=== PATIENT | male | born 1950 | race Caucasian/White ===

== ENCOUNTER → 2020-08-06 | Outpatient (CLI) | payer OTHER ==
[~2020-08-06] MED LIST: ALDACTONE50 MG PO; ASPIRIN CHEWABL81 MG PO; BUSPIRONE HCL15 MG PO; CARVEDILOL12.5 MG PO; CLOPIDOGREL75 MG PO; COREG 12.5MG12.5 MG PO; COREG12.5 MG PO; GLUCOPHAGE1000 MG PO; LASIX40 MG PO; LEXAPRO20 MG PO; MAG-G27 MG PO; MAGNESIUM GLUCO27 MG PO; MULTIVITAMINS1 EAC1 PO; NEURONTIN300 MG PO; NEURONTIN600 MG PO; NORCO 7.5-3251 EACH PO; NORVASC5 MG PO; OMEPRAZOLE40 MG PO; TENORMIN50 MG PO; TIZANIDINE HCL4 M1 PO; VENTOLIN HFA 66.7 GM INH; VITAMIN B-12500 MCG PO; VITAMIN D325 MC6 PO; ZESTRIL 40 MG T40 MG PO; ZESTRIL40 MG PO; ZOCOR20 MG PO; ZOFRAN 4 MG TAB4 MG PO; ZYLOPRIM 100 M100 MG PO; ZYVOX600 MG PO
[2020-08-06 11:12] LABS: RBC (AUTOMATED) 200 (0-100000); WBC (AUTOMATED) 76 (0-500)
[2020-08-06 11:13] LABS: MONONUCLEAR CELLS 93.4 (75-100)
[2020-08-06 11:14] LABS: BODY FLUID SOURCE ASCITES; POLYMORPHONUCLEAR % 6.6 (0-25)
[2020-08-06 11:23] LABS: TOTAL PROTEIN, BODY FLUID 1.9 gm/dL
== END ==
LOC: OPSV 09:32
PROVIDERS: Internal Medicine Gastroenterology
PROC: 0W9G3ZZ Drainage of Peritoneal Cavity, Percutaneous Approach (ICD-10-PCS; principal; 2020-08-06)
DX: K70.31 Alcoholic cirrhosis of liver with ascites (principal)
CPT/HCPCS: 36415; 80048; 84157; 89051; 96365; P9047

== ENCOUNTER 2020-08-25 09:02 | Inpatient (IN) | payer MEDICARE ==
[~2020-08-25] VITALS: Ht 162.6 cm; Wt 81.6 kg
[~2020-08-25 09:02] MED LIST changes: -BUSPIRONE HCL15 MG PO; -CLOPIDOGREL75 MG PO; -COREG12.5 MG PO; -MAGNESIUM GLUCO27 MG PO; -TENORMIN50 MG PO; -ZYVOX600 MG PO
[2020-08-25 10:08] LABS: HEMOGLOBIN 11.8 gm/dl (14.0-17.5); RED BLOOD COUNT 3.6 M/UL (4.20-5.50); WHITE BLOOD COUNT 13.4 K/UL (4.5-11.0)
[2020-08-25 11:31] LABS: BODY FLUID SOURCE ASCITES; MONONUCLEAR CELLS 91 (75-100); POLYMORPHONUCLEAR % 9 (0-25); RBC (AUTOMATED) 100 (0-100000); WBC (AUTOMATED) 97 (0-500)
[2020-08-25 11:37] LABS: TOTAL PROTEIN, BODY FLUID 2.4 gm/dL
--- NOTE | 2020-08-25 14:59 | NUR ---
Attempted US guided PIV without success. to place central line.
[2020-08-25] MEDS ORDERED: MAGNESIUM GLUCO27 MG PO (17:12)
[2020-08-25] MEDS ORDERED: COREG12.5 MG PO (17:13)
[2020-08-25] MEDS ORDERED: LASIX40 MG PO (17:13)
[2020-08-25] MEDS ORDERED: BUSPIRONE HCL15 MG PO (23:20)
[2020-08-25] MEDS ORDERED: TENORMIN50 MG PO (23:24)
[2020-08-25] MEDS ORDERED: CLOPIDOGREL75 MG PO (23:26)
[2020-08-26 04:55] LABS: HEMOGLOBIN 11.3 gm/dl (14.0-17.5); RED BLOOD COUNT 3.43 M/UL (4.20-5.50); WHITE BLOOD COUNT 12.3 K/UL (4.5-11.0)
[2020-08-27 04:59] LABS: HEMOGLOBIN 10.5 gm/dl (14.0-17.5); RED BLOOD COUNT 3.18 M/UL (4.20-5.50)
[2020-08-28 05:27] LABS: HEMOGLOBIN 9.4 gm/dl (14.0-17.5)
[2020-08-28 05:36] LABS: RED BLOOD COUNT 2.83 M/UL (4.20-5.50); WHITE BLOOD COUNT 5.7 K/UL (4.5-11.0)
[2020-08-29 02:29] LABS: HEMOGLOBIN 9.2 gm/dl (14.0-17.5); RED BLOOD COUNT 2.8 M/UL (4.20-5.50); WHITE BLOOD COUNT 4.7 K/UL (4.5-11.0)
[2020-08-30 02:53] LABS: HEMOGLOBIN 9.4 gm/dl (14.0-17.5); RED BLOOD COUNT 2.86 M/UL (4.20-5.50); WHITE BLOOD COUNT 4.7 K/UL (4.5-11.0)
[2020-08-31 04:03] LABS: HEMOGLOBIN 9.6 gm/dl (14.0-17.5); RED BLOOD COUNT 2.93 M/UL (4.20-5.50); WHITE BLOOD COUNT 4.6 K/UL (4.5-11.0)
[2020-08-31 16:10] LABS: HEPARIN INDUCED PLATELET AB 0.199 OD (0.000-0.400)
[2020-09-01 04:08] LABS: HEMOGLOBIN 10.7 gm/dl (14.0-17.5); WHITE BLOOD COUNT 5.2 K/UL (4.5-11.0)
[2020-09-01 04:14] LABS: RED BLOOD COUNT 3.28 M/UL (4.20-5.50)
[2020-09-01 04:27] LABS: BUN/CREATININE RATIO 32 (0-10)
[2020-09-02 03:01] LABS: HEMOGLOBIN 11.1 gm/dl (14.0-17.5); RED BLOOD COUNT 3.44 M/UL (4.20-5.50); WHITE BLOOD COUNT 6.1 K/UL (4.5-11.0)
[2020-09-02 03:25] LABS: BUN/CREATININE RATIO 28 (0-10)
[2020-09-02] MEDS ORDERED: ZYVOX600 MG PO (21:22)
[2020-09-03 02:36] LABS: HEMOGLOBIN 10.9 gm/dl (14.0-17.5); RED BLOOD COUNT 3.44 M/UL (4.20-5.50)
[2020-09-03 03:00] LABS: BUN/CREATININE RATIO 26 (0-10)
== END 2020-09-03 12:15 | disposition home or self-care (01) | DRG 871 ==
LOC: ER1 09:02 → CCU 16:37 → PROG CARE 16:37 → CDU 16:37 → CCU 18:56 → PROG CARE 08-28 10:25
PROVIDERS: Family Medicine; Internal Medicine; Physician Assistant; ADMIT Internal Medicine
PROC: 0W9G3ZZ Drainage of Peritoneal Cavity, Percutaneous Approach (ICD-10-PCS; principal; 2020-08-25)
PROC: 05HM33Z Insertion of Infusion Device into Right Internal Jugular Vein, Percutaneous Approach (ICD-10-PCS; 2020-08-25)
PROC: 02HV33Z Insertion of Infusion Device into Superior Vena Cava, Percutaneous Approach (ICD-10-PCS; 2020-08-25)
PROC: B24BZZZ Ultrasonography of Heart with Aorta (ICD-10-PCS; 2020-08-31)
DX: A41.81 Sepsis due to Enterococcus (principal); R57.1 Hypovolemic shock; N17.0 Acute kidney failure with tubular necrosis; J96.01 Acute respiratory failure with hypoxia; J18.9 Pneumonia, unspecified organism; R65.21 Severe sepsis with septic shock; E87.2 Acidosis; Z20.822 Contact with and (suspected) exposure to COVID-19; E11.9 Type 2 diabetes mellitus without complications; R74.8 Abnormal levels of other serum enzymes; D69.6 Thrombocytopenia, unspecified; E78.5 Hyperlipidemia, unspecified; N18.30 Chronic kidney disease, stage 3 unspecified; K70.31 Alcoholic cirrhosis of liver with ascites; E87.6 Hypokalemia; I95.9 Hypotension, unspecified; D64.9 Anemia, unspecified; F17.210 Nicotine dependence, cigarettes, uncomplicated; Z83.3 Family history of diabetes mellitus; Z79.82 Long term (current) use of aspirin; Z79.4 Long term (current) use of insulin; Z79.899 Other long term (current) drug therapy
CPT/HCPCS: ECHO; 36415; 36600; 71045; 71046; 80048; 80053; 81001; 82140; 82533; 82803; 82962; 83605; 83690; 83880; 83986; 84132; 84157; 84439; 84443; 85025; 85027; 85049; 85610; 87040; 87070; 87077; 87186; 87205; 89051; 93005; 93306; 94640; 94664; 94760; 96365; 96375; 97110; 97110-GP-CQ; 97116-GP-CQ; 97163; 97166; 97530-GP-CQ; 99285; G0480; J0696; J1644; J1650; J2185; J2354; J3370; J7030; J7040; J7042; J7070; P9045; P9047; U0002

== ENCOUNTER 2020-09-06 08:19 | Emergency (ER) | payer MEDICARE ==
[~2020-09-06 08:19] MED LIST changes: +BUSPIRONE HCL15 MG PO; +CLOPIDOGREL75 MG PO; +COREG12.5 MG PO; +MAGNESIUM GLUCO27 MG PO; +TENORMIN50 MG PO; +ZYVOX600 MG PO
== END 2020-09-06 10:30 | disposition left against medical advice (07) ==
LOC: ER1 08:19
DX: R41.0 Disorientation, unspecified (principal); F17.200 Nicotine dependence, unspecified, uncomplicated
CPT/HCPCS: 99284

== ENCOUNTER → 2020-09-10 | Outpatient (CLI) | payer MEDICARE ==
[~2020-09-10] VITALS: Ht 157.5 cm; Wt 65.8 kg
== END ==
LOC: OPSV 12:34
PROC: 0W9G3ZX Drainage of Peritoneal Cavity, Percutaneous Approach, Diagnostic (ICD-10-PCS; principal; 2020-09-10)
PROC: BW40ZZZ Ultrasonography of Abdomen (ICD-10-PCS; 2020-09-10)
DX: R18.8 Other ascites (principal); Z20.822 Contact with and (suspected) exposure to COVID-19; Z79.82 Long term (current) use of aspirin; Z79.02 Long term (current) use of antithrombotics/antiplatelets; Z79.899 Other long term (current) drug therapy
CPT/HCPCS: 36415; 85610; 87635; 96365; P9047

== ENCOUNTER 2020-10-06 09:12 | Emergency (ER) | payer MEDICARE ==
[2020-10-06 11:54] LABS: RED BLOOD COUNT 3.18 M/UL (4.20-5.50); WHITE BLOOD COUNT 5.9 K/UL (4.5-11.0)
== END 2020-10-06 13:26 | disposition left against medical advice (07) ==
LOC: ER1 09:12
PROVIDERS: Emergency Medicine
DX: K74.60 Unspecified cirrhosis of liver (principal); R18.8 Other ascites; N17.9 Acute kidney failure, unspecified; K76.7 Hepatorenal syndrome; E11.9 Type 2 diabetes mellitus without complications; J44.9 Chronic obstructive pulmonary disease, unspecified; I11.0 Hypertensive heart disease with heart failure; I50.9 Heart failure, unspecified; F17.200 Nicotine dependence, unspecified, uncomplicated; Z86.19 Personal history of other infectious and parasitic diseases
CPT/HCPCS: 36415; 80053; 83690; 83880; 85025; 85610; 85730; 93005; 99284

== ENCOUNTER 2020-10-10 08:34 | Emergency (ER) | payer MEDICARE ==
[2020-10-10 09:38] LABS: RED BLOOD COUNT 3.48 M/UL (4.20-5.50); WHITE BLOOD COUNT 7.4 K/UL (4.5-11.0)
[2020-10-10 10:23] LABS: BUN/CREATININE RATIO 14 (0-10)
[2020-10-10 12:05] LABS: BODY FLUID SOURCE ASCITES; MONONUCLEAR CELLS 91.1 (75-100); POLYMORPHONUCLEAR % 8.9 (0-25); RBC (AUTOMATED) 100 (0-100000); WBC (AUTOMATED) 45 (0-500)
[2020-10-10 13:16] LABS: LDH, BODY FLUID 51 U/L; TOTAL PROTEIN, BODY FLUID 2.2 gm/dL
== END 2020-10-10 13:29 | disposition home or self-care (01) ==
LOC: ER1 08:34
PROVIDERS: Emergency Medicine
PROC: 0W9G3ZX Drainage of Peritoneal Cavity, Percutaneous Approach, Diagnostic (ICD-10-PCS; principal; 2020-10-10)
DX: R06.00 Dyspnea, unspecified (principal); K74.60 Unspecified cirrhosis of liver; I12.9 Hypertensive chronic kidney disease with stage 1 through stage 4 chronic kidney disease, or unspecified chronic kidney disease; N18.9 Chronic kidney disease, unspecified; D63.1 Anemia in chronic kidney disease; E11.22 Type 2 diabetes mellitus with diabetic chronic kidney disease
CPT/HCPCS: 71045; 80053; 82550; 82553; 82945; 83615; 83690; 83874; 84157; 84484; 85025; 85610; 85730; 87070; 87205; 89051; 96365; 96366; 99285; P9047

== ENCOUNTER → 2020-10-29 | Outpatient (CLI) | payer MEDICARE ==
[~2020-10-29] VITALS: Ht 157.5 cm; Wt 65.8 kg
== END ==
LOC: OPSV 09:28
PROVIDERS: Internal Medicine Gastroenterology
PROC: 0W9G3ZZ Drainage of Peritoneal Cavity, Percutaneous Approach (ICD-10-PCS; principal; 2020-10-29)
DX: K70.31 Alcoholic cirrhosis of liver with ascites (principal)
CPT/HCPCS: 80048; 96365; C1729; P9047

== ENCOUNTER → 2020-11-05 | Outpatient (CLI) | payer MEDICARE ==
[~2020-11-05] VITALS: Ht 157.5 cm; Wt 67.1 kg
== END ==
LOC: OPSV 09:54
PROVIDERS: Internal Medicine Gastroenterology
PROC: 0W9G3ZZ Drainage of Peritoneal Cavity, Percutaneous Approach (ICD-10-PCS; principal; 2020-11-05)
DX: K70.31 Alcoholic cirrhosis of liver with ascites (principal); N18.9 Chronic kidney disease, unspecified; Z79.82 Long term (current) use of aspirin; Z79.02 Long term (current) use of antithrombotics/antiplatelets; Z79.899 Other long term (current) drug therapy
CPT/HCPCS: 80048; 96365; C1729; P9047

== ENCOUNTER → 2020-11-12 | Outpatient (CLI) | payer MEDICARE | LOC: OPSV 09:02 | PROVIDERS: Internal Medicine Gastroenterology | PROC: 0W9G3ZZ Drainage of Peritoneal Cavity, Percutaneous Approach (ICD-10-PCS; principal; 2020-11-12) | DX: K70.31 Alcoholic cirrhosis of liver with ascites (principal); N18.9 Chronic kidney disease, unspecified | CPT/HCPCS: 36415; 80048; 96365; C1729; P9047 ==

== ENCOUNTER → 2020-11-25 | Outpatient (CLI) | payer MEDICARE ==
[~2020-11-25] VITALS: Ht 157.5 cm; Wt 65.8 kg
== END ==
LOC: OPSV 09:32
PROVIDERS: Internal Medicine Gastroenterology
PROC: 0W9G3ZZ Drainage of Peritoneal Cavity, Percutaneous Approach (ICD-10-PCS; principal; 2020-11-25)
DX: K70.31 Alcoholic cirrhosis of liver with ascites (principal); Z79.82 Long term (current) use of aspirin; Z79.02 Long term (current) use of antithrombotics/antiplatelets; Z79.899 Other long term (current) drug therapy
CPT/HCPCS: 36415; 80048; 96365; C1729; P9047

== ENCOUNTER → 2020-12-09 | Outpatient (CLI) | payer MEDICARE ==
[~2020-12-09] VITALS: Ht 157.5 cm; Wt 67.1 kg
== END ==
LOC: OPSV 09:22
PROVIDERS: Internal Medicine Gastroenterology
PROC: 0W9G3ZZ Drainage of Peritoneal Cavity, Percutaneous Approach (ICD-10-PCS; principal; 2020-12-09)
DX: K70.31 Alcoholic cirrhosis of liver with ascites (principal)
CPT/HCPCS: 36415; 80048; 96365; C1729; P9047

== ENCOUNTER → 2020-12-23 | Outpatient (CLI) | payer MEDICARE ==
[~2020-12-23] VITALS: Ht 157.5 cm; Wt 67.1 kg
== END ==
LOC: OPSV 09:20
PROVIDERS: Internal Medicine Gastroenterology
PROC: 0W9G3ZZ Drainage of Peritoneal Cavity, Percutaneous Approach (ICD-10-PCS; principal; 2020-12-23)
DX: K70.31 Alcoholic cirrhosis of liver with ascites (principal); N18.9 Chronic kidney disease, unspecified; Z91.19 Patient's noncompliance with other medical treatment and regimen; Z79.82 Long term (current) use of aspirin; Z79.02 Long term (current) use of antithrombotics/antiplatelets; Z79.899 Other long term (current) drug therapy
CPT/HCPCS: 36415; 80048; 96365; C1729; P9047

== ENCOUNTER → 2020-12-30 | Outpatient (CLI) | payer MEDICARE ==
[~2020-12-30] VITALS: Ht 157.5 cm; Wt 67.6 kg
== END ==
LOC: OPSV 09:49
PROVIDERS: Internal Medicine Gastroenterology
PROC: 0W9G3ZZ Drainage of Peritoneal Cavity, Percutaneous Approach (ICD-10-PCS; principal; 2020-12-30)
DX: K70.31 Alcoholic cirrhosis of liver with ascites (principal); N18.9 Chronic kidney disease, unspecified; Z79.82 Long term (current) use of aspirin; Z79.02 Long term (current) use of antithrombotics/antiplatelets; Z79.899 Other long term (current) drug therapy
CPT/HCPCS: 36415; 80048; 96365; C1729; P9047

== ENCOUNTER → 2021-01-06 | Outpatient (CLI) | payer MEDICARE ==
[~2021-01-06] VITALS: Ht 157.5 cm; Wt 65.8 kg
== END ==
LOC: OPSV 08:38
PROVIDERS: Internal Medicine Gastroenterology
PROC: 0W9G3ZZ Drainage of Peritoneal Cavity, Percutaneous Approach (ICD-10-PCS; principal; 2021-01-06)
DX: K70.31 Alcoholic cirrhosis of liver with ascites (principal); Z79.82 Long term (current) use of aspirin; Z79.02 Long term (current) use of antithrombotics/antiplatelets; Z79.899 Other long term (current) drug therapy
CPT/HCPCS: 36415; 80048; 96365; C1729; P9047

== ENCOUNTER → 2021-01-13 | Outpatient (CLI) | payer MEDICARE ==
[~2021-01-13] VITALS: Ht 157.5 cm; Wt 65.8 kg
== END ==
LOC: OPSV 08:55
PROVIDERS: Internal Medicine Gastroenterology
PROC: 0W9G3ZZ Drainage of Peritoneal Cavity, Percutaneous Approach (ICD-10-PCS; principal; 2021-01-13)
DX: K70.31 Alcoholic cirrhosis of liver with ascites (principal); Z79.82 Long term (current) use of aspirin; Z79.02 Long term (current) use of antithrombotics/antiplatelets; Z79.899 Other long term (current) drug therapy
CPT/HCPCS: 36415; 80048; 96365; C1729; P9047

== ENCOUNTER → 2021-01-20 | Outpatient (CLI) | payer MEDICARE ==
[~2021-01-20] VITALS: Ht 157.5 cm; Wt 65.8 kg
== END | disposition home or self-care (01) ==
LOC: OPSV 09:11
PROVIDERS: Internal Medicine Gastroenterology
DX: K70.31 Alcoholic cirrhosis of liver with ascites (principal); Z79.82 Long term (current) use of aspirin; Z79.02 Long term (current) use of antithrombotics/antiplatelets; Z79.899 Other long term (current) drug therapy
CPT/HCPCS: 36415; 80048; 96365; C1729; P9047

== ENCOUNTER → 2021-01-27 | Outpatient (CLI) | payer MEDICARE ==
[~2021-01-27] VITALS: Ht 157.5 cm; Wt 64.9 kg
== END ==
LOC: OPSV 09:46
PROVIDERS: Internal Medicine Gastroenterology
PROC: 0W9G3ZZ Drainage of Peritoneal Cavity, Percutaneous Approach (ICD-10-PCS; principal; 2021-01-27)
DX: K70.31 Alcoholic cirrhosis of liver with ascites (principal); Z79.82 Long term (current) use of aspirin; Z79.02 Long term (current) use of antithrombotics/antiplatelets; Z79.899 Other long term (current) drug therapy
CPT/HCPCS: 36415; 80048; 96365; P9047

== ENCOUNTER → 2021-02-03 | Outpatient (CLI) | payer MEDICARE ==
[~2021-02-03] VITALS: Ht 157.5 cm; Wt 67.1 kg
== END ==
LOC: OPSV 09:03
PROVIDERS: Internal Medicine Gastroenterology
PROC: 0W9G3ZZ Drainage of Peritoneal Cavity, Percutaneous Approach (ICD-10-PCS; principal; 2021-02-03)
DX: K70.31 Alcoholic cirrhosis of liver with ascites (principal); Z79.82 Long term (current) use of aspirin; Z79.02 Long term (current) use of antithrombotics/antiplatelets; Z79.899 Other long term (current) drug therapy
CPT/HCPCS: 36415; 80048; 96365; C1729; P9047

== ENCOUNTER → 2021-02-17 | Outpatient (CLI) | payer MEDICARE ==
[~2021-02-17] VITALS: Ht 157.5 cm; Wt 67.1 kg
== END ==
LOC: OPSV 09:05
PROVIDERS: Internal Medicine Gastroenterology
PROC: 0W9G3ZX Drainage of Peritoneal Cavity, Percutaneous Approach, Diagnostic (ICD-10-PCS; principal; 2021-02-17)
DX: K70.31 Alcoholic cirrhosis of liver with ascites (principal); Z79.82 Long term (current) use of aspirin; Z79.02 Long term (current) use of antithrombotics/antiplatelets; Z79.899 Other long term (current) drug therapy
CPT/HCPCS: 36415; 80048; 96365; C1729; P9047

== ENCOUNTER → 2021-02-24 | Outpatient (CLI) | payer MEDICARE ==
[~2021-02-24] VITALS: Ht 157.5 cm; Wt 67.1 kg
== END ==
LOC: OPSV 09:05
PROVIDERS: Internal Medicine Gastroenterology
PROC: 0W9G3ZZ Drainage of Peritoneal Cavity, Percutaneous Approach (ICD-10-PCS; principal; 2021-02-24)
DX: K70.31 Alcoholic cirrhosis of liver with ascites (principal)
CPT/HCPCS: 36415; 80048; 96365; C1729; P9047

== ENCOUNTER → 2021-03-03 | Outpatient (CLI) | payer MEDICARE ==
[~2021-03-03] VITALS: Ht 157.5 cm; Wt 67.1 kg
== END ==
LOC: OPSV 09:17
PROVIDERS: Internal Medicine Gastroenterology
PROC: 0W9G3ZZ Drainage of Peritoneal Cavity, Percutaneous Approach (ICD-10-PCS; principal; 2021-03-03)
DX: K70.31 Alcoholic cirrhosis of liver with ascites (principal); Z79.82 Long term (current) use of aspirin; Z79.02 Long term (current) use of antithrombotics/antiplatelets; Z79.899 Other long term (current) drug therapy
CPT/HCPCS: 36415; 80048; 96365; C1729; P9047

== ENCOUNTER → 2021-03-10 | Outpatient (CLI) | payer MEDICARE ==
[~2021-03-10] VITALS: Ht 157.5 cm; Wt 67.1 kg
== END ==
LOC: OPSV 08:08
PROVIDERS: Internal Medicine Gastroenterology
PROC: 0W9G3ZZ Drainage of Peritoneal Cavity, Percutaneous Approach (ICD-10-PCS; principal; 2021-03-10)
DX: K70.31 Alcoholic cirrhosis of liver with ascites (principal); M19.90 Unspecified osteoarthritis, unspecified site; N18.9 Chronic kidney disease, unspecified; Z79.82 Long term (current) use of aspirin; Z79.02 Long term (current) use of antithrombotics/antiplatelets; Z79.899 Other long term (current) drug therapy
CPT/HCPCS: 36415; 80048; 96365; C1729; P9047

== ENCOUNTER → 2021-03-17 | Outpatient (CLI) | payer MEDICARE ==
[~2021-03-17] VITALS: Ht 157.5 cm; Wt 67.1 kg
== END ==
LOC: OPSV 08:16
PROVIDERS: Internal Medicine Gastroenterology
PROC: 0W9G3ZZ Drainage of Peritoneal Cavity, Percutaneous Approach (ICD-10-PCS; principal; 2021-03-17)
DX: K70.31 Alcoholic cirrhosis of liver with ascites (principal); Z79.82 Long term (current) use of aspirin; Z79.02 Long term (current) use of antithrombotics/antiplatelets; Z79.899 Other long term (current) drug therapy
CPT/HCPCS: 36415; 80048; 96365; C1729; P9047

== ENCOUNTER → 2021-03-24 | Outpatient (CLI) | payer MEDICARE ==
[~2021-03-24] VITALS: Ht 157.5 cm; Wt 67.6 kg
[2021-03-24 10:45] LABS: HEMOGLOBIN 10.9 gm/dl (14.0-17.5); RED BLOOD COUNT 3.4 M/UL (4.20-5.50); WHITE BLOOD COUNT 7.5 K/UL (4.5-11.0)
== END | disposition home or self-care (01) ==
LOC: OPSV 08:56
PROVIDERS: Internal Medicine Gastroenterology
PROC: 0W9G3ZZ Drainage of Peritoneal Cavity, Percutaneous Approach (ICD-10-PCS; principal; 2021-03-24)
DX: K70.31 Alcoholic cirrhosis of liver with ascites (principal); Z79.82 Long term (current) use of aspirin; Z79.02 Long term (current) use of antithrombotics/antiplatelets; Z79.899 Other long term (current) drug therapy
CPT/HCPCS: 36415; 80053; 83036; 83735; 84439; 84443; 85025; C1729; P9047

== ENCOUNTER → 2021-03-31 | Outpatient (CLI) | payer MEDICARE ==
[~2021-03-31] VITALS: Ht 157.5 cm; Wt 67.1 kg
== END ==
LOC: OPSV 09:08
PROVIDERS: Internal Medicine Gastroenterology
PROC: 0W9G3ZZ Drainage of Peritoneal Cavity, Percutaneous Approach (ICD-10-PCS; principal; 2021-03-31)
DX: K70.31 Alcoholic cirrhosis of liver with ascites (principal); Z79.82 Long term (current) use of aspirin; Z79.02 Long term (current) use of antithrombotics/antiplatelets; Z79.899 Other long term (current) drug therapy
CPT/HCPCS: 36415; 80048; 96365; P9047

== ENCOUNTER → 2021-04-17 | Outpatient (CLI) | payer MEDICARE ==
[~2021-04-17] VITALS: Ht 157.5 cm; Wt 67.1 kg
== END | disposition home or self-care (01) ==
LOC: OPSV 08:44
PROC: 0W9G3ZZ Drainage of Peritoneal Cavity, Percutaneous Approach (ICD-10-PCS; principal; 2021-04-17)
DX: K70.31 Alcoholic cirrhosis of liver with ascites (principal); L98.9 Disorder of the skin and subcutaneous tissue, unspecified; Z79.82 Long term (current) use of aspirin; Z79.02 Long term (current) use of antithrombotics/antiplatelets; Z79.899 Other long term (current) drug therapy
CPT/HCPCS: 36415; 96365; P9047

== ENCOUNTER → 2021-04-22 | Outpatient (CLI) | payer MEDICARE ==
[2021-04-24 12:14] LABS: CREATININE, URINE 123.6 mg/dL (Not Estab.); MICROALB/CREAT RATIO <2 (0-29)
== END ==
LOC: LBRF 17:11
PROVIDERS: Internal Medicine Nephrology
DX: N17.9 Acute kidney failure, unspecified (principal)
CPT/HCPCS: 81001; 82043; 82436; 82570; 84133; 84156; 84300

== ENCOUNTER → 2021-04-24 | Outpatient (CLI) | payer MEDICARE | END | disposition home or self-care (01) | LOC: OPSV 07:59 | PROVIDERS: Internal Medicine Gastroenterology | PROC: 0W9G3ZZ Drainage of Peritoneal Cavity, Percutaneous Approach (ICD-10-PCS; principal; 2021-04-24) | DX: K70.31 Alcoholic cirrhosis of liver with ascites (principal); K76.7 Hepatorenal syndrome; Z79.82 Long term (current) use of aspirin; Z79.02 Long term (current) use of antithrombotics/antiplatelets; Z79.899 Other long term (current) drug therapy | CPT/HCPCS: 36415; 80048; 80076; 85610; 96365; C1729; P9047 ==

== ENCOUNTER → 2021-05-01 | Outpatient (CLI) | payer MEDICARE | END | disposition home or self-care (01) | LOC: OPSV 08:33 | PROVIDERS: Internal Medicine Gastroenterology | PROC: 0W9G3ZZ Drainage of Peritoneal Cavity, Percutaneous Approach (ICD-10-PCS; principal; 2021-05-01) | DX: K70.31 Alcoholic cirrhosis of liver with ascites (principal) | CPT/HCPCS: 36415; 80048; 96365; C1729; P9047 ==

== ENCOUNTER → 2021-05-15 | Outpatient (CLI) | payer MEDICARE | END | disposition home or self-care (01) | LOC: OPSV 10:00 | PROVIDERS: Internal Medicine Gastroenterology | PROC: 0W9G3ZZ Drainage of Peritoneal Cavity, Percutaneous Approach (ICD-10-PCS; principal; 2021-05-15) | DX: K70.31 Alcoholic cirrhosis of liver with ascites (principal); Z79.82 Long term (current) use of aspirin; Z79.02 Long term (current) use of antithrombotics/antiplatelets; Z79.899 Other long term (current) drug therapy | CPT/HCPCS: 36415; 80048; 96365; C1729; P9047 ==

== ENCOUNTER → 2021-05-20 | Outpatient (CLI) | payer MEDICARE ==
[~2021-05-20] VITALS: Ht 157.5 cm; Wt 67.1 kg
== END | disposition home or self-care (01) ==
LOC: OPSV 09:08
PROVIDERS: Internal Medicine Gastroenterology
PROC: 0W9G3ZZ Drainage of Peritoneal Cavity, Percutaneous Approach (ICD-10-PCS; principal; 2021-05-20)
DX: K70.31 Alcoholic cirrhosis of liver with ascites (principal); Z79.82 Long term (current) use of aspirin; Z79.02 Long term (current) use of antithrombotics/antiplatelets; Z79.899 Other long term (current) drug therapy
CPT/HCPCS: 36415; 80048; P9047

== ENCOUNTER → 2021-05-25 | Outpatient (CLI) | payer MEDICARE ==
[~2021-05-25] VITALS: Ht 157.5 cm; Wt 65.8 kg
== END ==
LOC: OPSV 10:00
PROVIDERS: Internal Medicine Gastroenterology
PROC: 0W9G3ZZ Drainage of Peritoneal Cavity, Percutaneous Approach (ICD-10-PCS; principal; 2021-05-25)
DX: K70.31 Alcoholic cirrhosis of liver with ascites (principal); Z79.82 Long term (current) use of aspirin; Z79.02 Long term (current) use of antithrombotics/antiplatelets; Z79.899 Other long term (current) drug therapy
CPT/HCPCS: 36415; 80048; 96365; C1729; P9047

== ENCOUNTER → 2021-06-02 | Outpatient (CLI) | payer MEDICARE ==
[~2021-06-02] VITALS: Ht 157.5 cm; Wt 67.1 kg
== END | disposition home or self-care (01) ==
LOC: OPSV 09:38
PROVIDERS: Internal Medicine Gastroenterology
PROC: 0W9G3ZZ Drainage of Peritoneal Cavity, Percutaneous Approach (ICD-10-PCS; principal; 2021-06-02)
DX: K70.31 Alcoholic cirrhosis of liver with ascites (principal); Z79.82 Long term (current) use of aspirin; Z79.02 Long term (current) use of antithrombotics/antiplatelets; Z79.899 Other long term (current) drug therapy
CPT/HCPCS: 36415; 80048; 96365; P9047

== ENCOUNTER → 2021-06-09 | Outpatient (CLI) | payer MEDICARE ==
[~2021-06-09] VITALS: Ht 157.5 cm; Wt 65.8 kg
== END | disposition home or self-care (01) ==
LOC: OPSV 10:00
PROVIDERS: Internal Medicine Gastroenterology
PROC: 0W9G3ZZ Drainage of Peritoneal Cavity, Percutaneous Approach (ICD-10-PCS; principal; 2021-06-09)
DX: K70.31 Alcoholic cirrhosis of liver with ascites (principal)
CPT/HCPCS: 36415; 80048; 80076; 85610; 96365; P9047

== ENCOUNTER → 2021-06-16 | Outpatient (CLI) | payer MEDICARE ==
[~2021-06-16] VITALS: Ht 157.5 cm; Wt 67.6 kg
== END | disposition home or self-care (01) ==
LOC: OPSV 10:00
PROVIDERS: Internal Medicine Gastroenterology
PROC: 0W9G3ZZ Drainage of Peritoneal Cavity, Percutaneous Approach (ICD-10-PCS; principal; 2021-06-16)
DX: K70.31 Alcoholic cirrhosis of liver with ascites (principal)
CPT/HCPCS: 36415; 80048; 96365; P9047

== ENCOUNTER → 2021-06-23 | Outpatient (CLI) | payer MEDICARE ==
[~2021-06-23] VITALS: Ht 157.5 cm; Wt 67.6 kg
== END | disposition home or self-care (01) ==
LOC: OPSV 10:00
PROVIDERS: Internal Medicine Gastroenterology
PROC: 0W9G3ZZ Drainage of Peritoneal Cavity, Percutaneous Approach (ICD-10-PCS; principal; 2021-06-23)
DX: K70.31 Alcoholic cirrhosis of liver with ascites (principal); Z79.82 Long term (current) use of aspirin; Z79.02 Long term (current) use of antithrombotics/antiplatelets; Z79.899 Other long term (current) drug therapy
CPT/HCPCS: 36415; 80048; 96365; C1729; P9047

== ENCOUNTER → 2021-06-30 | Outpatient (CLI) | payer MEDICARE ==
[~2021-06-30] VITALS: Ht 157.5 cm; Wt 65.8 kg
[2021-06-30 13:01] LABS: BUN/CREATININE RATIO 22 (0-10)
== END | disposition home or self-care (01) ==
LOC: OPSV 10:00
PROVIDERS: Internal Medicine Gastroenterology
PROC: 0W9G3ZZ Drainage of Peritoneal Cavity, Percutaneous Approach (ICD-10-PCS; principal; 2021-06-30)
DX: K70.31 Alcoholic cirrhosis of liver with ascites (principal); Z79.82 Long term (current) use of aspirin; Z79.02 Long term (current) use of antithrombotics/antiplatelets; Z79.899 Other long term (current) drug therapy
CPT/HCPCS: 36415; 80048; 96365; C1729; P9047

== ENCOUNTER → 2021-07-07 | Outpatient (CLI) | payer MEDICARE ==
[~2021-07-07] VITALS: Ht 157.5 cm; Wt 67.1 kg
== END | disposition home or self-care (01) ==
LOC: OPSV 09:36
PROVIDERS: Internal Medicine Gastroenterology
PROC: 0W9G3ZZ Drainage of Peritoneal Cavity, Percutaneous Approach (ICD-10-PCS; principal; 2021-07-07)
DX: K70.31 Alcoholic cirrhosis of liver with ascites (principal); N18.9 Chronic kidney disease, unspecified; Z79.82 Long term (current) use of aspirin; Z79.02 Long term (current) use of antithrombotics/antiplatelets; Z79.899 Other long term (current) drug therapy
CPT/HCPCS: 36415; 80048; 96365; C1729; P9047

== ENCOUNTER → 2021-07-14 | Outpatient (CLI) | payer MEDICARE ==
[~2021-07-14] VITALS: Ht 157.5 cm; Wt 65.8 kg
== END | disposition home or self-care (01) ==
LOC: OPSV 09:39
PROVIDERS: Internal Medicine Gastroenterology
PROC: 0W9G3ZZ Drainage of Peritoneal Cavity, Percutaneous Approach (ICD-10-PCS; principal; 2021-07-14)
DX: K70.31 Alcoholic cirrhosis of liver with ascites (principal); Z79.82 Long term (current) use of aspirin; Z79.02 Long term (current) use of antithrombotics/antiplatelets; Z79.899 Other long term (current) drug therapy
CPT/HCPCS: 80048; 96365; C1729; P9047

== ENCOUNTER → 2021-07-21 | Outpatient (CLI) | payer MEDICARE ==
[~2021-07-21] VITALS: Ht 157.5 cm; Wt 67.6 kg
== END | disposition home or self-care (01) ==
LOC: OPSV 10:00
PROVIDERS: Internal Medicine Gastroenterology
PROC: 0W9G3ZZ Drainage of Peritoneal Cavity, Percutaneous Approach (ICD-10-PCS; principal; 2021-07-21)
DX: K70.31 Alcoholic cirrhosis of liver with ascites (principal); Z79.82 Long term (current) use of aspirin; Z79.02 Long term (current) use of antithrombotics/antiplatelets; Z79.899 Other long term (current) drug therapy
CPT/HCPCS: 36415; 80048; 96365; C1729; P9047

== ENCOUNTER → 2021-07-28 | Outpatient (CLI) | payer MEDICARE ==
[~2021-07-28] VITALS: Ht 157.5 cm; Wt 67.1 kg
== END | disposition home or self-care (01) ==
LOC: OPSV 09:46
PROVIDERS: Internal Medicine Gastroenterology
PROC: 0W9G3ZZ Drainage of Peritoneal Cavity, Percutaneous Approach (ICD-10-PCS; principal; 2021-07-28)
DX: K70.31 Alcoholic cirrhosis of liver with ascites (principal)
CPT/HCPCS: 36415; 80048; 96365; C1729; P9047

== ENCOUNTER → 2021-08-04 | Outpatient (CLI) | payer MEDICARE ==
[~2021-08-04] VITALS: Ht 157.5 cm; Wt 67.1 kg
[2021-08-05 06:09] LABS: CALCIUM, SERUM 9.4 mg/dL (8.6-10.2); CREATININE, SERUM 1.52 mg/dL (0.76-1.27); POTASSIUM, SERUM 4.7 mmol/L (3.5-5.2)
== END | disposition home or self-care (01) ==
LOC: OPSV 10:00
PROVIDERS: Internal Medicine Gastroenterology
PROC: 0W9G3ZZ Drainage of Peritoneal Cavity, Percutaneous Approach (ICD-10-PCS; principal; 2021-08-04)
DX: K70.31 Alcoholic cirrhosis of liver with ascites (principal)
CPT/HCPCS: 36415; 80048; C1729; P9047

== ENCOUNTER → 2021-08-11 | Outpatient (CLI) | payer MEDICARE ==
[~2021-08-11] VITALS: Ht 157.5 cm; Wt 65.8 kg
== END | disposition home or self-care (01) ==
LOC: OPSV 08-04 10:00
PROC: 0W9G3ZZ Drainage of Peritoneal Cavity, Percutaneous Approach (ICD-10-PCS; principal; 2021-08-11)
DX: K70.31 Alcoholic cirrhosis of liver with ascites (principal); Z79.82 Long term (current) use of aspirin; Z79.02 Long term (current) use of antithrombotics/antiplatelets; Z79.899 Other long term (current) drug therapy
CPT/HCPCS: 96365; C1729; P9047

== ENCOUNTER → 2021-08-18 | Outpatient (CLI) | payer MEDICARE ==
[~2021-08-18] VITALS: Ht 177.8 cm; Wt 67.1 kg
== END | disposition home or self-care (01) ==
LOC: OPSV 09:25
PROC: 0W9G3ZZ Drainage of Peritoneal Cavity, Percutaneous Approach (ICD-10-PCS; principal; 2021-08-18)
PROC: BW40ZZZ Ultrasonography of Abdomen (ICD-10-PCS; 2021-08-18)
DX: K70.31 Alcoholic cirrhosis of liver with ascites (principal); Z79.02 Long term (current) use of antithrombotics/antiplatelets; Z79.82 Long term (current) use of aspirin; Z79.899 Other long term (current) drug therapy
CPT/HCPCS: 96365; C1729; P9047

== ENCOUNTER → 2021-09-01 | Outpatient (CLI) | payer MEDICARE ==
[~2021-09-01] VITALS: Ht 157.5 cm; Wt 67.6 kg
== END | disposition home or self-care (01) ==
LOC: OPSV 08-25 10:00
PROC: 0W9G3ZZ Drainage of Peritoneal Cavity, Percutaneous Approach (ICD-10-PCS; principal; 2021-09-01)
PROC: BW40ZZZ Ultrasonography of Abdomen (ICD-10-PCS; 2021-09-01)
DX: K70.31 Alcoholic cirrhosis of liver with ascites (principal); Z79.02 Long term (current) use of antithrombotics/antiplatelets; Z79.82 Long term (current) use of aspirin; Z79.899 Other long term (current) drug therapy
CPT/HCPCS: 96365; C1729; P9047

== ENCOUNTER 2021-09-08 12:24 | Inpatient (IN) | payer MEDICARE ==
[~2021-09-08] VITALS: Ht 172.7 cm; Wt 83.9 kg
[~2021-09-08 12:24] MED LIST changes: -DOXEPIN HCL50 MG PO; -IRON325 M1 PO; -SYMBICORT 16010.2 GM INH; -VENLAFAXINE H37.5 MG PO
[2021-09-08 13:46] LABS: HEMOGLOBIN 9.8 gm/dl (14.0-17.5); RED BLOOD COUNT 3.12 M/UL (4.20-5.50); WHITE BLOOD COUNT 8.4 K/UL (4.5-11.0)
--- NOTE | 2021-09-08 18:28 | NUR ---
Dr. Lambert requested that the patietn be bladder scanned. Patietn was scanned and 75 ml of urine was present in the bladder. Dr. Lambert made aware, no new orders at this time.
[2021-09-09 07:50] LABS: HEMOGLOBIN 9.9 gm/dl (14.0-17.5); RED BLOOD COUNT 3.29 M/UL (4.20-5.50)
[2021-09-09 07:53] LABS: WHITE BLOOD COUNT 6.2 K/UL (4.5-11.0)
[2021-09-09] MEDS ORDERED: SYMBICORT 16010.2 GM INH (11:48)
[2021-09-09] MEDS ORDERED: BUSPIRONE HCL15 MG PO (11:49)
[2021-09-09] MEDS ORDERED: VENLAFAXINE H37.5 MG PO (11:50)
[2021-09-09] MEDS ORDERED: DOXEPIN HCL50 MG PO (11:50)
[2021-09-09] MEDS ORDERED: IRON325 M1 PO (11:50)
[2021-09-09] MEDS ORDERED: MAGNESIUM GLUCO27 MG PO (11:51)
[2021-09-10 04:51] LABS: WHITE BLOOD COUNT 6.9 K/UL (4.5-11.0)
[2021-09-10 04:55] LABS: HEMOGLOBIN 7.8 gm/dl (14.0-17.5); RED BLOOD COUNT 2.5 M/UL (4.20-5.50)
--- NOTE | 2021-09-10 11:03 | NUR ---
Patient refuses to wear tele monitor, MD aware.
[2021-09-11 06:20] LABS: HEMOGLOBIN 8.1 gm/dl (14.0-17.5); RED BLOOD COUNT 2.63 M/UL (4.20-5.50); WHITE BLOOD COUNT 7.1 K/UL (4.5-11.0)
[2021-09-12 05:14] LABS: HEMOGLOBIN 9.2 gm/dl (14.0-17.5); WHITE BLOOD COUNT 7.1 K/UL (4.5-11.0)
[2021-09-12 05:23] LABS: RED BLOOD COUNT 2.95 M/UL (4.20-5.50)
[2021-09-13 05:47] LABS: HEMOGLOBIN 9.1 gm/dl (14.0-17.5); RED BLOOD COUNT 2.87 M/UL (4.20-5.50); WHITE BLOOD COUNT 8.5 K/UL (4.5-11.0)
[2021-09-14 06:13] LABS: HEMOGLOBIN 9.5 gm/dl (14.0-17.5); RED BLOOD COUNT 3.01 M/UL (4.20-5.50); WHITE BLOOD COUNT 10.3 K/UL (4.5-11.0)
--- NOTE | 2021-09-14 10:19 | NUR ---
Patient is noncompliant to telemetry and pulse MD kaylee made aware and order obtained to D/C tele and pulse ox.
--- NOTE | 2021-09-14 18:20 | NUR ---
Patient refuses to have aquacel dressing changed, will try again.
[2021-09-15 05:24] LABS: HEMOGLOBIN 8.7 gm/dl (14.0-17.5); RED BLOOD COUNT 2.89 M/UL (4.20-5.50); WHITE BLOOD COUNT 8.5 K/UL (4.5-11.0)
--- NOTE | 2021-09-15 14:30 | NUR ---
Patient agreed to have dressing to left hip changed. Dressing was chagned. surgical site had no s/s of infection noted.
== END 2021-09-15 17:40 | disposition home health service (06) | DRG 481 ==
LOC: ER1 12:24 → CDU 13:57 → M/S 13:57
PROVIDERS: Emergency Medicine; Orthopaedic Surgery; Physician Assistant; ADMIT Internal Medicine
PROC: 0QS706Z Reposition Left Upper Femur with Intramedullary Internal Fixation Device, Open Approach (ICD-10-PCS; principal; 2021-09-09 11:30)
DX: S72.142A Displaced intertrochanteric fracture of left femur, initial encounter for closed fracture (principal); N17.9 Acute kidney failure, unspecified; D62 Acute posthemorrhagic anemia; F17.210 Nicotine dependence, cigarettes, uncomplicated; Z20.822 Contact with and (suspected) exposure to COVID-19; J44.9 Chronic obstructive pulmonary disease, unspecified; F10.10 Alcohol abuse, uncomplicated; N18.30 Chronic kidney disease, stage 3 unspecified; D63.1 Anemia in chronic kidney disease; E11.22 Type 2 diabetes mellitus with diabetic chronic kidney disease; F12.10 Cannabis abuse, uncomplicated; E86.0 Dehydration; K70.31 Alcoholic cirrhosis of liver with ascites; I12.9 Hypertensive chronic kidney disease with stage 1 through stage 4 chronic kidney disease, or unspecified chronic kidney disease; W01.0XXA Fall on same level from slipping, tripping and stumbling without subsequent striking against object, initial encounter; Z86.73 Personal history of transient ischemic attack (TIA), and cerebral infarction without residual deficits; Z98.890 Other specified postprocedural states; Z79.899 Other long term (current) drug therapy; Z83.3 Family history of diabetes mellitus; Z79.82 Long term (current) use of aspirin; Z91.14 Patient's other noncompliance with medication regimen
CPT/HCPCS: 36415; 36600; 71045; 73502; 73552; 76000; 80053; 82140; 82550; 82553; 82803; 82962; 83735; 85025; 85027; 85610; 85730; 86850; 86900; 86901; 93005; 94640; 94760; 96365; 96374; 97110-GP-CQ; 97162; 97166; 97530; 97530-GP-CQ; 97535; 99285; C1713; C1729; J0690; J2250; J2270; J2370; J2704; J2710; J3010; J7030; J7120; P9047; U0002

== ENCOUNTER → 2021-09-08 | Outpatient (CLI) | payer MEDICARE ==
[~2021-09-08] MED LIST changes: +DOXEPIN HCL50 MG PO; +HYDROCODON-ACE1 EAC6 PO; +IRON325 M1 PO; -NORCO 7.5-3251 EACH PO; +SYMBICORT 16010.2 GM INH; +VENLAFAXINE H37.5 MG PO
== END | disposition home or self-care (01) ==
LOC: OPSV 10:00
PROC: 0W9G3ZZ Drainage of Peritoneal Cavity, Percutaneous Approach (ICD-10-PCS; principal; 2021-09-08)
DX: K70.31 Alcoholic cirrhosis of liver with ascites (principal); Z79.02 Long term (current) use of antithrombotics/antiplatelets; Z79.82 Long term (current) use of aspirin; Z79.899 Other long term (current) drug therapy
CPT/HCPCS: 96365; C1729; P9047

== ENCOUNTER 2021-09-25 10:13 | Emergency (ER) | payer MEDICARE ==
[~2021-09-25 10:13] MED LIST changes: +DOXEPIN HCL50 MG PO; +IRON325 M1 PO; +SYMBICORT 16010.2 GM INH; +VENLAFAXINE H37.5 MG PO
[2021-09-25 10:53] LABS: HEMOGLOBIN 10.2 gm/dl (14.0-17.5); RED BLOOD COUNT 3.39 M/UL (4.20-5.50); WHITE BLOOD COUNT 3.3 K/UL (4.5-11.0)
[2021-09-25 11:23] LABS: BUN/CREATININE RATIO 22 (0-10)
== END 2021-09-25 17:35 | disposition home or self-care (01) ==
LOC: ER1 10:13
PROVIDERS: Nurse Practitioner
DX: U07.1 COVID-19 (principal); K74.60 Unspecified cirrhosis of liver; I10 Essential (primary) hypertension; F17.210 Nicotine dependence, cigarettes, uncomplicated
CPT/HCPCS: 0240U; 80053; 85025; 93005; 99285

== ENCOUNTER → 2021-10-13 | Outpatient (CLI) | payer MEDICARE ==
[~2021-10-13] VITALS: Ht 157.5 cm; Wt 65.8 kg
== END | disposition home or self-care (01) ==
LOC: OPSV 09:01
PROC: 0W9G3ZZ Drainage of Peritoneal Cavity, Percutaneous Approach (ICD-10-PCS; principal; 2021-10-13)
PROC: BW40ZZZ Ultrasonography of Abdomen (ICD-10-PCS; 2021-10-13)
DX: K70.31 Alcoholic cirrhosis of liver with ascites (principal); Z79.02 Long term (current) use of antithrombotics/antiplatelets; Z79.82 Long term (current) use of aspirin; Z79.899 Other long term (current) drug therapy
CPT/HCPCS: 96365; C1729; P9047

== ENCOUNTER → 2021-11-03 | Outpatient (CLI) | payer MEDICARE ==
[~2021-11-03] VITALS: Ht 157.5 cm; Wt 65.8 kg
== END | disposition home or self-care (01) ==
LOC: OPSV 10:00
PROC: 0W9G3ZZ Drainage of Peritoneal Cavity, Percutaneous Approach (ICD-10-PCS; principal; 2021-11-03)
PROC: BW40ZZZ Ultrasonography of Abdomen (ICD-10-PCS; 2021-11-03)
DX: K70.31 Alcoholic cirrhosis of liver with ascites (principal); Z79.02 Long term (current) use of antithrombotics/antiplatelets; Z79.82 Long term (current) use of aspirin; Z79.899 Other long term (current) drug therapy
CPT/HCPCS: 96365; C1729; P9047

== ENCOUNTER → 2021-11-17 | Outpatient (CLI) | payer MEDICARE | LOC: OPSV 09:57 | PROC: 0W9G3ZZ Drainage of Peritoneal Cavity, Percutaneous Approach (ICD-10-PCS; principal; 2021-11-17) | DX: K70.31 Alcoholic cirrhosis of liver with ascites (principal) | CPT/HCPCS: 96365; C1729; P9047 ==

== ENCOUNTER → 2021-12-01 | Outpatient (CLI) | payer MEDICARE ==
[~2021-12-01] VITALS: Ht 157.5 cm; Wt 67.6 kg
== END | disposition home or self-care (01) ==
LOC: OPSV 09:45
PROC: 0W9G3ZZ Drainage of Peritoneal Cavity, Percutaneous Approach (ICD-10-PCS; principal; 2021-12-01)
DX: K70.31 Alcoholic cirrhosis of liver with ascites (principal)
CPT/HCPCS: 96365; P9047

== ENCOUNTER → 2021-12-15 | Outpatient (CLI) | payer MEDICARE ==
[~2021-12-15] VITALS: Ht 157.5 cm; Wt 67.1 kg
== END | disposition home or self-care (01) ==
LOC: OPSV 10:00
PROC: 0W9G3ZZ Drainage of Peritoneal Cavity, Percutaneous Approach (ICD-10-PCS; principal; 2021-12-15)
DX: K70.31 Alcoholic cirrhosis of liver with ascites (principal); Z79.02 Long term (current) use of antithrombotics/antiplatelets; Z79.82 Long term (current) use of aspirin; Z79.899 Other long term (current) drug therapy
CPT/HCPCS: 96365; C1729; P9047

== ENCOUNTER → 2021-12-29 | Outpatient (CLI) | payer MEDICARE ==
[~2021-12-29] VITALS: Ht 157.5 cm; Wt 67.1 kg
== END | disposition home or self-care (01) ==
LOC: OPSV 10:00
PROC: 0W9G3ZX Drainage of Peritoneal Cavity, Percutaneous Approach, Diagnostic (ICD-10-PCS; principal; 2021-12-29)
DX: K70.31 Alcoholic cirrhosis of liver with ascites (principal); Z79.82 Long term (current) use of aspirin; Z79.02 Long term (current) use of antithrombotics/antiplatelets; Z79.899 Other long term (current) drug therapy
CPT/HCPCS: 96365; C1729; P9047

== ENCOUNTER → 2022-01-12 | Outpatient (CLI) | payer MEDICARE | END | disposition home or self-care (01) | LOC: OPSV 10:00 | PROC: 0W9G3ZZ Drainage of Peritoneal Cavity, Percutaneous Approach (ICD-10-PCS; principal; 2022-01-12) | DX: K70.31 Alcoholic cirrhosis of liver with ascites (principal); Z79.02 Long term (current) use of antithrombotics/antiplatelets; Z79.82 Long term (current) use of aspirin; Z79.899 Other long term (current) drug therapy | CPT/HCPCS: 96365; C1729; P9047 ==

== ENCOUNTER → 2022-01-26 | Outpatient (CLI) | payer MEDICARE ==
[~2022-01-26] VITALS: Ht 157.5 cm; Wt 65.8 kg
== END | disposition home or self-care (01) ==
LOC: OPSV 10:00
PROC: 0W9G3ZZ Drainage of Peritoneal Cavity, Percutaneous Approach (ICD-10-PCS; principal; 2022-01-26)
PROC: BW40ZZZ Ultrasonography of Abdomen (ICD-10-PCS; 2022-01-26)
DX: K70.31 Alcoholic cirrhosis of liver with ascites (principal)
CPT/HCPCS: 96365; C1729; P9047

== ENCOUNTER → 2022-02-09 | Outpatient (CLI) | payer MEDICARE ==
[~2022-02-09] VITALS: Ht 157.5 cm; Wt 65.8 kg
== END | disposition home or self-care (01) ==
LOC: OPSV 10:00
PROC: 0W9G3ZZ Drainage of Peritoneal Cavity, Percutaneous Approach (ICD-10-PCS; principal; 2022-02-09)
PROC: BW40ZZZ Ultrasonography of Abdomen (ICD-10-PCS; 2022-02-09)
DX: K70.31 Alcoholic cirrhosis of liver with ascites (principal); Z79.02 Long term (current) use of antithrombotics/antiplatelets; Z79.82 Long term (current) use of aspirin; Z79.899 Other long term (current) drug therapy
CPT/HCPCS: 96365; C1729; P9047

== ENCOUNTER → 2022-03-01 | Outpatient (CLI) | payer MEDICARE ==
[~2022-03-01] VITALS: Ht 157.5 cm; Wt 67.6 kg
== END | disposition home or self-care (01) ==
LOC: OPSV 02-23 10:00
PROC: 0W9G3ZZ Drainage of Peritoneal Cavity, Percutaneous Approach (ICD-10-PCS; principal; 2022-03-01)
DX: K70.31 Alcoholic cirrhosis of liver with ascites (principal)
CPT/HCPCS: 96365; C1729; P9047

== ENCOUNTER → 2022-03-15 | Outpatient (CLI) | payer MEDICARE ==
[~2022-03-15] VITALS: Ht 157.5 cm; Wt 65.8 kg
== END | disposition home or self-care (01) ==
LOC: OPSV 10:00
PROC: 0W9G3ZZ Drainage of Peritoneal Cavity, Percutaneous Approach (ICD-10-PCS; principal; 2022-03-15)
PROC: BW40ZZZ Ultrasonography of Abdomen (ICD-10-PCS; 2022-03-15)
DX: K70.31 Alcoholic cirrhosis of liver with ascites (principal); Z79.02 Long term (current) use of antithrombotics/antiplatelets; Z79.899 Other long term (current) drug therapy; Z79.82 Long term (current) use of aspirin
CPT/HCPCS: 96365; C1729; P9047

== ENCOUNTER → 2022-04-05 | Outpatient (CLI) | payer MEDICARE ==
[~2022-04-05] VITALS: Ht 157.5 cm; Wt 67.1 kg
== END | disposition home or self-care (01) ==
LOC: OPSV 10:00
PROC: 0W9G3ZZ Drainage of Peritoneal Cavity, Percutaneous Approach (ICD-10-PCS; principal; 2022-04-05)
DX: K70.31 Alcoholic cirrhosis of liver with ascites (principal); Z79.02 Long term (current) use of antithrombotics/antiplatelets; Z79.82 Long term (current) use of aspirin; Z79.899 Other long term (current) drug therapy
CPT/HCPCS: 96365; C1729; P9047

== ENCOUNTER → 2022-04-26 | Outpatient (CLI) | payer MEDICARE ==
[~2022-04-26] VITALS: Ht 157.5 cm; Wt 67.6 kg
== END | disposition home or self-care (01) ==
LOC: OPSV 10:00
PROC: 0W9G3ZZ Drainage of Peritoneal Cavity, Percutaneous Approach (ICD-10-PCS; principal; 2022-04-26)
DX: K70.31 Alcoholic cirrhosis of liver with ascites (principal); Z79.82 Long term (current) use of aspirin; Z79.02 Long term (current) use of antithrombotics/antiplatelets; Z79.899 Other long term (current) drug therapy
CPT/HCPCS: 96365; C1729; J2001; P9047